=== PATIENT | female | born 1955 | race Caucasian/White ===

== ENCOUNTER → 2018-12-10 | Outpatient (CLI) | payer OTHER ==
[~2018-12-10] MED LIST: ASPIR 8181 M1 PO; AZELASTINE137 MCG/0. NS; BACTROBAN CREAM30 G1 TOP; BENADRYL25 MG PO; CARAFATE 1 GM TA1 G1 PO; CARVEDILOL25 MG PO; CLOBETASOL EMOL15 GM TOP; COQ-10100 MG PO; DULCOLAX STOOL100 M1 PO; FIBER; GABAPENTIN 100100 MG PO; HYDROCHLOROTHIA25 M2 PO; METHOCARBAMOL500 M2 PO; MOBIC7.5 MG PO; NORTRIPTYLINE H10 M1 PO; OMEGA-31000 M1 PO; PERCOCET PO; POTASSIUM20 PO; PRALUENT P75 MG/1 ML SUBQ; PREDNISONE 20 M20 MG PO; PROTONIX40 M1 PO; RED YEAST RICE600 M1 PO; REQUIP 1 MG TABL1 M1 PO; UNICOMPLEX M TA1 TA1 PO; VITAMIN D 5050000 I1 PO; VITAMIN D2000 UNIT PO; ZANTAC 150MG T150 MG PO; ZOCOR 10 MG TAB10 MG PO
--- NOTE | ~2018-12-10 | PAINCON ---
[address] [address] PAIN MANAGEMENT CONSULTATION Name: GUERLINE RIDDLE Room: [facility] Charis#: [id number] Admission: 12/10/18 Attend Phys: Nenita Amaya MD Discharge: Date of : 57 Report #: [id number] THIS REPORT FOR: //name// CC: Wesley Amaya DATE OF SERVICE: 12/10/2018 CHIEF COMPLAINT: Low back pain. HISTORY: The patient is a 63-year-old female, who has been experiencing pain in her low back area. She is having pain that is radiating down into her left leg as well as the right, left side is most problematic. She has noted pain, which has been problematic since 11/04/2018. She is having, which she describes as, sciatic pain radiating down to her left leg and into the right leg. She first noticed something was wrong at work in September. She did have an adjustment and felt better for some time, but the pain has returned. It involves her hip and it is most bothersome radiating down to her left leg. She has tried steroid Dosepak. She found it helpful, but has it started to wear off. She is having some numbness in her calf in both legs with some tingling at bedtime. She has had epidural steroid injections in the past and found it beneficial. She has returned today with the desire to undergo an epidural steroid injection. ALLERGIES: SULFA, STATINS, LATEX. CURRENT MEDICATIONS: Praluent Pen injection 2 injections twice monthly, aspirin 81 mg, Coreg 25 mg b.i.d., clobetasol emollient cream applied to the affected area b.i.d., Dulcolax stool softener, vitamin D 50,000 international units, Neurontin 100 mg t.i.d., hydrochlorothiazide 25 mg, meloxicam 7.5 mg b.i.d., methocarbamol 750 mg q. 4 hours p.r.n., multivitamin with iron, nortriptyline 20 mg at bedtime, omega-3 oils 1000 mg, Percocet 5/325 q. 6 hours p.r.n., Protonix 40 mg, K-Dur 20 mEq, Zanaflex 150 mg b.i.d., Requip 2 mg at bedtime, Zocor 10 mg, Carafate 1 gram 4 times daily. PHYSICAL EXAMINATION: GENERAL: The patient is a well-developed, well-nourished, white female. She appears her stated age. She is alert and oriented x 3. Her affect is appropriate. Speech is fluent. HEENT: Normocephalic, atraumatic. Extraocular eye muscles intact. Sclerae nonicteric. Mucous membranes are moist. NECK: Without adenopathy or JVD. LUNGS: Clear to auscultation. MUSCULOSKELETAL: Upper extremity muscle strength is judged to be 5/5 for the major muscle groups in the upper extremity. Lower extremity muscle strength is 5-/5 for the major muscle groups in the lower extremity. The patient has a well-healed scar in the lower portion of her back in approximately L4-[place] [address] PAIN MANAGEMENT CONSULTATION Name: GUERLINE RIDDLE Room: [facility]#: [id number] Admission: 12/10/18 Attend Phys: Nenita Amaya MD Discharge: Date of : 57 Report #: [id number] has pain and discomfort that would radiate down the lateral portion of her left leg with numbness, tingling, and weakness. Positive straight leg raise. The patient has some decrease sensory input at the L4-L5 dermatomal distribution. The patient is without significant scoliosis, kyphosis or lordosis. IMPRESSION: 1. Lumbar radiculopathy at L4-L5 dermatomal distribution with pain on the left. 2. Hypertension. 3. Esophageal reflux. 4. Hyperlipidemia. 5. Bursitis of the left hip. 6. Restless leg syndrome. 7. Lumbar radiculopathy. RECOMMENDATIONS: We discussed treatment options with the patient. We will consider an epidural steroid injection in the L4-L5 area. Risks and benefits of the procedure have been discussed. The patient will return to the Pain Clinic, at which time we will consider an epidural steroid injection. We would like to thank you for letting us participate in her care. We hope she continues to improve. By: [id number]. Mo Amaya MD /nt
== END ==
LOC: M.PC 04:54
DX: M54.16 Radiculopathy, lumbar region (principal); G25.81 Restless legs syndrome; E78.5 Hyperlipidemia, unspecified; I10 Essential (primary) hypertension; K21.9 Gastro-esophageal reflux disease without esophagitis; Z88.8 Allergy status to other drugs, medicaments and biological substances; Z88.2 Allergy status to sulfonamides; Z91.040 Latex allergy status; Z79.899 Other long term (current) drug therapy

== ENCOUNTER → 2018-12-17 | Outpatient (CLI) | payer OTHER ==
--- NOTE | ~2018-12-17 | PAINCON ---
[address] [address] PAIN MANAGEMENT CONSULTATION Name: GUERLINE RIDDLE Room: [facility] Charis#: [id number] Admission: 12/17/18 Attend Phys: Nenita Amaya MD Discharge: Date of : 57 Report #: [id number] THIS REPORT FOR: //name// CC: Wesley Amaya DATE OF SERVICE: 12/17/2018 CHIEF COMPLAINT: Low back pain with pain down into the left leg. HISTORY: The patient is a 63-year-old female who has been seen in the pain clinic because of lumbar radiculopathy. She is experiencing pain in her low back with pain that radiates down to her left leg as well as the right leg. Left leg has been more problematic. Pain has been problematic since 11/04/2018. Denies any new changes since we saw her at the last visit. Notes that the pain is worse on the left side. Has pain in her hips, which is bothersome. Experiences pain that is radiating down the lateral portion of her leg. Denies any new bowel or bladder dysfunction. The patient has had back surgery in the lumbar area. LABORATORY DATA: Her MRI shows ligamentum flavum buckling, moderate to mild right neural foraminal stenosis. Severe left neural foraminal stenosis with effacement of the perineural fat and probable impingement on the exiting L4 nerve. ALLERGIES: SULFA, STATINS, LATEX. CURRENT MEDICATIONS: Praluent pen injection 2 injections twice monthly, aspirin 81 mg, Coreg 25 mg b.i.d., clobetasol emollient cream apply to affected area b.i.d., Dulcolax stool softener, vitamin D 50,000 international units, Neurontin 100 mg 3 times daily, hydrochlorothiazide 25 mg, Meloxicam 7.5 mg b.i.d., methocarbamol 500 mg total of 750 mg every 4 hours p.r.n., multivitamin with iron, nortriptyline 20 mg at bedtime, omega 3 oils 1000 mg, Percocet 5/325 one p.o. every 6 hours p.r.n., Protonix 40 mg, K-Dur 20 mEq, Zanaflex 150 mg b.i.d., Requip 2 mg at bedtime, Zocor 10 mg, Carafate 1 gram 4 times daily. PAIN CLINIC ASSESSMENT/PQRS: 1. The patient is not being treated for osteoarthritis or rheumatoid arthritis. 2. Height 5 feet 4 inches, weight 192 pounds, BMI is 33.3. 3. VITAL SIGNS: Blood pressure 145/90, heart rate 88, respiratory rate 16, room air saturation 96%, temperature 98.6. 4. Pain intensity 2/10. 5. Fall history: The patient has not fallen in the last 3 months. 6. Blood thinner. The patient is not on a blood thinning medication. 7. Hypertension. The patient is being treated for hypertension. 8. Opioid greater than 6 weeks. The patient is [place] [address] PAIN MANAGEMENT CONSULTATION Name: GUERLINE RIDDLE Room: [facility]#: [id number] Admission: 12/17/18 Attend Phys: Nenita Amaya MD Discharge: Date of : 57 Report #: [id number] control her pain. 9. Risk assessment tool, low for opioid use. 10. Functional assessment tool. 11. Recreational drug use. The patient denies. 12. Tobacco: The patient denies alcohol: The patient denies use of alcoholic beverages. PHYSICAL EXAMINATION: GENERAL: The patient is a well-developed, well-nourished white female. Appears her stated age. She is alert and oriented x 3. Affect is appropriate. Speech is fluent. HEAD, EYES, EARS, NOSE, AND THROAT: Normocephalic, atraumatic. Extraocular eye muscles intact. Sclerae nonicteric. Mucous membranes are moist. NECK: Without adenopathy or JVD. LUNGS: Clear to auscultation. EXTREMITIES: Upper extremity muscle strength judged to be 5/5 for the major muscle groups in the upper extremity. Lower extremity muscle strength is judged to be 5-/5 for the major muscle groups in the lower extremity. The patient has a well-healed scar in the lower portion of her back in approximately L4-L5. She has pain and discomfort, which is radiating down the left lateral portion of her left leg with numbness, tingling, and weakness. Positive straight leg raise noted to have some decreased sensorium along the lateral portion of the L4-L5 dermatomal distribution. The patient without significant scoliosis, kyphosis or lordosis. IMPRESSION: 1. Lumbar radiculopathy in the L4-L5 dermatomal distribution on the left side. The patient is status post surgery in the low back area. 2. Hypertension. 3. Esophageal reflux. 4. Hyperlipidemia. 5. Bursitis of the left hip. 6. Restless legs syndrome. 7. Lumbar radiculopathy. RECOMMENDATIONS: We discussed treatment options with the patient. Risks and benefits of an epidural steroid injection were discussed. They include but are not limited to infection, worsening of pain, no improvement in pain, spinal headache and paralysis. The patient elects to proceed. PROCEDURE NOTE: The patient was taken to the procedure area. She was then assisted in getting on examination table. Her back was sterilely prepped with a Betadine solution. Fluoroscopy using anterior, posterior as well as lateral viewing were implemented. The patient's back was sterilely prepped and the area of the L4-L5 incision. We explained to the patient possibility of increased spinal headache, given that the patient has had surgery in [place] [address] PAIN MANAGEMENT CONSULTATION Name: GUERLINE RIDDLE Room: [facility]#: [id number] Admission: 12/17/18 Attend Phys: Nenita Amaya MD Discharge: Date of : 57 Report #: [id number] use a Betadine solution to sterilely prep, the area. This was done on three occasions. It was allowed to dry. A 25-gauge needle was then advanced in the L4-L5 area using fluoroscopy. This area was anesthetized with 0.25% bupivacaine. A 17-gauge Tuohy with loss of resistance technique was used to gain access to the epidural space. There was no CSF, heme or paresthesia. Total of 80 mg of Depo-Medrol, 40 mg of triamcinolone and 2 mL of 0.25% bupivacaine was injected. The patient remained in the pain clinic for an appropriate amount of time. She will follow up in the future as needed. We would like to thank you for letting us to participate in her care. If her pain continue to be problematic, we may consider a left transforaminal approach. By: [id number]. Mo Amaya MD /ANA
== END | disposition home or self-care (01) ==
LOC: M.PC 04:53
DX: M54.16 Radiculopathy, lumbar region (principal); G89.29 Other chronic pain; I10 Essential (primary) hypertension; K21.9 Gastro-esophageal reflux disease without esophagitis; E78.5 Hyperlipidemia, unspecified; Z98.890 Other specified postprocedural states; Z79.899 Other long term (current) drug therapy; Z88.2 Allergy status to sulfonamides; Z91.040 Latex allergy status; Z79.82 Long term (current) use of aspirin

== ENCOUNTER → 2019-01-23 | Outpatient (CLI) | payer OTHER ==
--- NOTE | ~2019-01-23 | PAINCON ---
[address] [address] PAIN MANAGEMENT CONSULTATION Name: GUERLINE RIDDLE Room: [facility] Charis#: [id number] Admission: 01/23/19 Attend Phys: Nenita Amaya MD Discharge: Date of : 57 Report #: [id number] THIS REPORT FOR: //name// CC: Wesley Amaya DATE OF SERVICE: 01/23/2019 CHIEF COMPLAINT: Pain improved quite a bit. I did some walking around the pool and noticed some tightening in the back. HISTORY: The patient is a 63-year-old female who has been seen in the pain clinic because of lumbar radiculopathy. As you recall, she has had lumbar surgery in the past. She has noted a worsening of pain and discomfort in October of this year. She has undergone an epidural steroid injection. She was doing quite well. She states she went to the pool and did some walking around the sides of the pool. The following day, she noted some increased tightness. She again went to the pool with her grandchildren ages about 3 and 5. She noticed some increased pain and discomfort as a result of the activity in the pool. She notes that her pain has increased somewhat in the evening. She is having some pain in the lower portion of her back, involving her legs, the right leg was problematic and the left leg is more problematic today. She has not had any complications from the procedure. There were no change in bowel or bladder function as a result of the injections. ALLERGIES: SULFA, STATINS, AND LATEX. CURRENT MEDICATIONS: Praluent 2 injections twice monthly, aspirin 81 mg, Coreg 25 mg b.i.d., clobetasol emollient cream applied to affected area b.i.d., Dulcolax stool softener, vitamin D 50,000 units, Neurontin 100 mg t.i.d., hydrochlorothiazide 25 mg, meloxicam 7.5 mg b.i.d., methocarbamol 500 mg total 750 mg q. 4 hours p.r.n., multivitamins, iron, nortriptyline 20 mg at bedtime, omega 3 oils, Percocet 5/325 q. 6 hours p.r.n., Protonix 40 mg, K-Dur 20 mEq, Zanaflex 150 mg b.i.d., Requip, Zocor 10 mg, Carafate 1 gram 4 times daily. PAIN CLINIC ASSESSMENT/PQRS: 1. The patient is not being treated for osteoarthritis or rheumatoid arthritis. 2. Height 5 feet 4 inches, weight 194 pounds, BMI is 34. 3. Vital Signs: Blood pressure 164/90, heart rate 82, respiratory rate 16, room air saturation 94%, temperature 98.3. 4. Pain intensity 05/10. 5. Fall history: The patient has not fallen in the last 3 months. 6. Blood thinner. The patient is not on a blood thinning medication. 7. Hypertension. The patient is being treated for hypertension. 8. Opiates greater than 6 weeks. The patient received medication from her [address] [place] [address] PAIN MANAGEMENT CONSULTATION Name: GUERLINE RIDDLE Room: [facility]#: [id number] Admission: 01/23/19 Attend Phys: Nenita Amaya MD Discharge: Date of : 57 Report #: [id number] primary. 9. Risk assessment tool, low for opioid use. 10. Functional assessment tool. 11. Recreational drug use. The patient denies. 12. : The patient denies use of alcoholic beverages. PHYSICAL EXAMINATION: GENERAL: The patient is a well-developed, well-nourished white female. Appears her stated age. She is alert and oriented x 3. Her affect is appropriate. Speech is fluent. HEENT: Normocephalic, atraumatic. Extraocular eye muscles intact. The patient has glasses on. NECK: Without adenopathy or JVD. LUNGS: Clear to auscultation. EXTREMITIES: Upper extremity muscle strength is judged to be 5-/5 for the major muscle groups in the upper extremity. The patient is without significant scoliosis, kyphosis, or lordosis. She has a well-healed scar in the lower portion of her back at approximately L4-L5 midline area. Has pain and discomfort, which is radiating primarily down into the L4-L5 dermatomal distribution around into her left thigh. Does note some numbness and weakness. The patient's notes the problems in the L4-L5 dermatomal distribution. IMPRESSION: 1. Lumbar radiculopathy, L4-L5 dermatomal distribution on the left. 2. The patient is status post surgery in the past. 3. Hypertension. 4. Gastroesophageal reflux. 5. Hyperlipidemia. 6. Bursitis of the left hip history. 7. Restless leg syndrome. 8. Lumbar radiculopathy history. RECOMMENDATIONS: We discussed treatment options with the patient. Risks and benefits of an epidural steroid injection were again discussed. They could include but are not limited to infection, worsening pain, no improvement in pain, spinal headache, and nerve damage. The patient elects to proceed. PROCEDURE NOTE: The patient was taken to the procedure area. She was then assisted in getting on the examination table. Her back was sterilely prepped with a Betadine solution. A 0.25% bupivacaine at the L4-L5 interspace was infiltrated. Fluoroscopy using anterior, posterior, as well as lateral viewing were implemented. A pillow was placed on the abdomen to bolster and improve positioning. A 25-gauge needle with 0.25% bupivacaine was infiltrated in the L4-L5 area. A 17-gauge Tuohy with loss of resistance technique at the L4-L5 area was then introduced into the epidural space. There was no CSF, heme, or paresthesia. Total of 80 mg Depo-Medrol, 40 mg triamcinolone, and 2 mL of 0.25% [place] [address] PAIN MANAGEMENT CONSULTATION Name: GUERLINE RIDDLE Room: [facility]#: [id number] Admission: 01/23/19 Attend Phys: Nenita Amaya MD Discharge: Date of : 57 Report #: [id number] bupivacaine was injected. Total of 5 seconds fluoroscopy time was used. The patient's pain decreased to 2 at the time of discharge. She will follow up in the future as needed. We would like to thank you for letting us participate in her care. We hope she continues to improve. By: [id number]. Mo Amaya MD /PMT
== END | disposition home or self-care (01) ==
LOC: M.PC 01-21 12:30
DX: M54.16 Radiculopathy, lumbar region (principal); G89.29 Other chronic pain; I10 Essential (primary) hypertension; E78.5 Hyperlipidemia, unspecified; K21.9 Gastro-esophageal reflux disease without esophagitis; Z98.890 Other specified postprocedural states; Z79.899 Other long term (current) drug therapy; Z88.2 Allergy status to sulfonamides; Z91.040 Latex allergy status; Z88.8 Allergy status to other drugs, medicaments and biological substances; Z79.82 Long term (current) use of aspirin

== ENCOUNTER → 2019-02-27 | Outpatient (CLI) | payer OTHER ==
--- NOTE | ~2019-02-27 | PAINCON ---
[address] [address] PAIN MANAGEMENT CONSULTATION Name: GUERLINE RIDDLE Room: [facility] CORYMike Vizcaino#: [id number] Admission: 02/27/19 Attend Phys: Nenita Amaya MD Discharge: Date of : 57 Report #: [id number] THIS REPORT FOR: //name// CC: Wesley Amaya DATE OF SERVICE: 02/27/2019 CHIEF COMPLAINT: Low back pain. It was decreased by 50% at the last injection, I would like to have another. HISTORY: The patient is a 63-year-old female who has been followed in the pain clinic. She has history of back surgery. She has undergone epidural steroid injections. She finds that these are beneficial. She returns today indicating that she has had greater than 50% improvement after the last injection. She now has pain that is radiating down in her hip. It is less problematic in her leg. This is similar to the pain that she had been experiencing and has gleaned benefit from that. Rates her pain as a 1/10. Feels that another injection at this point would be beneficial and would like to proceed. She has had no complications from the procedure. Denies any new bowel or bladder dysfunction. Notes her pain is worse with activity, walking and standing. It improves with use of medication, heat and cold. ALLERGIES: SULFA, STATINS, Lasix. CURRENT MEDICATIONS: Praluent 2 injections twice monthly, aspirin 81 mg, Coreg 25 mg b.i.d., clobetasol emollient cream apply to affected area b.i.d., Dulcolax stool softener, vitamin D 50,000 units, Neurontin 100 mg t.i.d., hydrochlorothiazide 25 mg, meloxicam ____ mg b.i.d., methocarbamol 500 mg, total 750 mg q.4 hours p.r.n., multivitamins, iron, nortriptyline 20 mg at bedtime, omega 3 oils, Percocet 5/325 q. 6 hours p.r.n., Protonix 40 mg, K-Dur 20 mEq, Zanaflex 150 mg b.i.d., Requip, Zocor 10 mg, Carafate 1 gram q.i.d. PAIN CLINIC ASSESSMENT/PQRS: 1. The patient is not being treated for osteoarthritis or rheumatoid arthritis. 2. Height 5 feet 4 inches, weight 191 pounds, BMI is 34. 3. Vital Signs: Blood pressure 154/82, heart rate 80, respiratory rate 16, room air saturation 96%, temperature 98.4. 4. Height 5 feet 4 inches, weight was 197 pounds, BMI is 33. 5. Pain intensity is 110. 6. Fall history: The patient has not fallen in the last 3 months. 7. Blood thinner. The patient is not on a blood thinning medication. 8. Hypertension. The patient is being treated for hypertension. 9. Opioids greater than 6 weeks. The patient receives medication from one source per primary. 10. Risk assessment tool, low [place] [address] PAIN MANAGEMENT CONSULTATION Name: GUERLINE RIDDLE Room: [facility]#: [id number] Admission: 02/27/19 Attend Phys: Nenita Amaya MD Discharge: Date of : 57 Report #: [id number] 11. Functional assessment tool. 12. Recreational drug use. The patient denies use of recreational drugs. 13. Tobacco: The patient denies use of alcoholic beverages. PHYSICAL EXAMINATION: GENERAL: The patient is a well-developed, well-nourished white female. Appears her stated age. She is alert and oriented x 3. Her affect is appropriate. Speech is fluent. HEENT: Normocephalic, atraumatic. Extraocular eye muscles intact. Sclerae nonicteric. Mucous membranes moist. The patient is wearing glasses. EXTREMITIES: Upper extremity muscle strength is judged to be 5-/5 for the major muscle groups in the upper extremity. The patient without significant scoliosis, kyphosis or lordosis. She has a well-healed scar in the lower portion of her back approximately L4-L5 midline. The patient has pain that is radiating down the L4-L5 dermatomal distribution. IMPRESSION: 1. Lumbar radiculopathy, L4-L5 dermatomal distribution on the right. 2. The patient is status post surgery in the past. 3. Hypertension. 4. Gastroesophageal reflux. 5. Hyperlipidemia. 6. Bursitis of the left hip. 7. Restless leg syndrome. 8. Lumbar radicular history. RECOMMENDATIONS: We discussed treatment options with the patient. Risks and benefits of an epidural steroid joint injection were discussed. They include but are not limited to infection, worsening of pain, no improvement in pain, spinal headache, nerve damage, no improvement in pain and the patient elects to proceed. PROCEDURE NOTE: The patient was taken to the procedure area. She was then assisted in getting on the examination table. She was placed in the prone position. Her back was sterilely prepped with Betadine solution. A 0.25% bupivacaine was infiltrated at the L4-L5 area using a 25-gauge needle. Aspiration was negative. A 17-gauge Tuohy with loss of resistance technique was used to gain access to the epidural space. Aspiration was negative. A total of 80 mg Depo-Medrol, 40 mg triamcinolone and 2 mL of 0.25% bupivacaine was infiltrated. The patient tolerated the procedure well. She remained in the Pain Clinic for an appropriate amount of time. [place] [address] PAIN MANAGEMENT CONSULTATION Name: GUERLINE RIDDLE [id number] Admission: 02/27/19 Attend Phys: Nenita Amaya MD Discharge: Date of : 57 Report #: [id number] as needed. We would like to thank you for letting us participate in her care. We hope she continues to improve. By: [id number]. Mo Amaya MD /francine
== END | disposition home or self-care (01) ==
LOC: M.PC 05:14
DX: M54.16 Radiculopathy, lumbar region (principal); G89.29 Other chronic pain; I10 Essential (primary) hypertension; K21.9 Gastro-esophageal reflux disease without esophagitis; E78.5 Hyperlipidemia, unspecified; Z98.890 Other specified postprocedural states; Z79.899 Other long term (current) drug therapy; Z88.2 Allergy status to sulfonamides; Z88.8 Allergy status to other drugs, medicaments and biological substances; Z79.82 Long term (current) use of aspirin; Z91.040 Latex allergy status